=== PATIENT | female | born 1975 | race Caucasian/White ===

== ENCOUNTER 2019-10-02 18:53 | Emergency (ER) | payer OTHER ==
[~2019-10-02] VITALS: Ht 162.6 cm; Wt 79.4 kg
--- NOTE | 2019-10-02 19:32 | NUR ---
[id number], FOUND ON A PORCH. PER RA, PT FOUND HOLDING A BOTTLE OF ALCOHOL. PT APPEARS INTOXICATED ON ARRIVAL. OPENS EYES TO VOICE, VERBALLY INCOMPREHENSIVE. VITAL SIGNS STABLE. RESPIRATIONS EVEN AND UNLABORED. NO ACUTE DISTRESS NOTED AT THIS TIME. WILL CONTINUE TO MONITOR
[2019-10-02 19:45] LABS: BASOPHILS # (AUTO) 0.1 /CMM (0.0-0.2); BASOPHILS % (AUTO) 0.8 % (0.0-2.0); EOSINOPHILS % (AUTO) 1.2 % (0.0-6.0); HEMATOCRIT 42 % (33-45); HEMOGLOBIN 14.1 g/dL (11.5-14.8); LYMPHOCYTES # (AUTO) 5.1 /CMM (0.8-4.8); LYMPHOCYTES % (AUTO) 41.2 % (20.0-44.0); MEAN CORPUSCULAR HGB CONC 34 g/dl (31.0-36.0); MEAN CORPUSCULAR VOLUME 102 fL (82-100); MONOCYTES # (AUTO) 1.1 /CMM (0.1-1.30); MONOCYTES % (AUTO) 8.9 % (2.0-12.0); NEUTROPHILS # (AUTO) 5.9 /CMM (1.8-8.9); NEUTROPHILS % (AUTO) 47.9 % (43.0-81.0); PLATELET COUNT (AUTO) 255 /CMM (150-450); RED BLOOD CELL COUNT(AUTO) 4.11 MIL/uL (4.0-5.2); WHITE BLOOD COUNT (AUTO) 12.3 K/uL (4.3-11.0)
[2019-10-02 20:04] LABS: CALCIUM, SERUM 8.7 mg/dL (8.5-10.1); CREATININE 0.7 mg/dL (0.6-1.3); POTASSIUM 3.7 mmol/L (3.5-5.1)
[2019-10-03] MEDS ORDERED: diphenhydrAMINE HCL 50 MG/ML VIAL IM ONE
[2019-10-03] MEDS ORDERED: HALOPERIDOL LACTATE INJ 5 MG/ML VIAL IM ONE
[2019-10-03] MEDS ORDERED: LORAZEPAM INJ 2 MG/ML VIAL IV ONE
[2019-10-03] MEDS ORDERED: diphenhydrAMINE HCL 50 MG/ML VIAL ONE (00:04)
[2019-10-03] MEDS ORDERED: HALOPERIDOL LACTATE INJ 5 MG/ML VIAL ONE (00:05)
[2019-10-03] MEDS ORDERED: LORAZEPAM INJ 2 MG/ML VIAL ONE (00:05)
--- NOTE | 2019-10-03 00:42 | NUR ---
Placed on 1 restrain aware.
--- NOTE | 2019-10-03 00:47 | NUR ---
PT WANDERING AND UNCOOPERATIVE TO STAFF. UNABLE TO FOLLOW COMMANDS.
[2019-10-03] MEDS ORDERED: ONDANSETRON 4 MG TAB.RAPDIS SL ONE (01:30)
[2019-10-03] MEDS ORDERED: ONDANSETRON 4 MG TAB.RAPDIS ONE (01:36)
--- NOTE | 2019-10-03 03:57 | NUR ---
Patient is resting comfortably in bed with eyes closed. Easily aroused. VSS
--- NOTE | 2019-10-03 06:30 | NUR ---
PT AWAKE. AAOX4. AMBULATORY WITH STEADY GAIT. NO ACUTE DISTRESS NOTED AT THIS TIME. PER DR. SOTO, PT MEDICALLY CLEARED FOR DISCHARGE. Patient discharged to home in stable condition. Written and verbal after care instructions given. Patient verbalizes understanding of instruction.IV removed. Catheter intact and site benign. Pressure and 4x4 applied to site. No bleeding noted.Pt ambulatory with a steady gait. Instructed pt not to drive, pt verbalized understanding.
[2019-10-03 06:33] VITALS: BP 118/79
== END 2019-10-03 06:34 | disposition home or self-care (01) ==
LOC: ER 18:54 → EDBD 18:54 → ER 10-03 06:34
DX: G93.40 Encephalopathy, unspecified (principal); F10.129 Alcohol abuse with intoxication, unspecified; R41.82 Altered mental status, unspecified; R45.1 Restlessness and agitation; Y90.8 Blood alcohol level of 240 mg/100 ml or more
CPT/HCPCS: 36415; 80048; 80307; 85025; 96372 ×2; 96374; 99285; J1200; J1630; J2060; J7030; Q0162; G0480